=== PATIENT | female | born 1975 | race African-American/Black ===

== ENCOUNTER 2017-01-16 06:08 | Inpatient (IN) | payer OTHER ==
[~2017-01-16] VITALS: Ht 165.1 cm; Wt 92.7 kg
[2017-01-16] MEDS ORDERED: ONDANSETRON HCL 4MG/2ML VIAL IV STA (06:30)
[2017-01-16] MEDS ORDERED: MORPHINE SULFATE 4 MG/ML CPJ (NOT FOR IM USE) IV STA (06:30)
[2017-01-16] MEDS ORDERED: ASPIRIN 81MG TABLET PO ONE (06:30)
[2017-01-16] MEDS ORDERED: SODIUM CHLORIDE 0.9% 1,000 ML IV ONE (06:30)
[2017-01-16 06:56] LABS: BASOPHILS % 0.6 % (0.0-2.0); EOSINOPHILS % 1.1 % (0.0-5.0); HEMATOCRIT. 37.3 % (36.0-48.0); HEMOGLOBIN. 12.3 g/dL (12.0-16.0); MEAN CORPUSCULAR HEMOGLOBIN 28.9 pg (28.0-32.0); MEAN CORPUSCULAR HGB CONC 32.9 g/dL (31.0-37.0); MEAN CORPUSCULAR VOLUME 87.8 fL (81.0-99.0); MEAN PLATELET VOLUME 7.4 fl (7.4-10.4); MONOCYTES % 12.7 % (2.0-8.0); NEUTROPHILS % 53.6 % (40.0-76.0); PLATELET 222 x1000/uL (130-400); RED BLOOD CELL COUNT 4.25 mill/uL (4.2-5.4); WHITE BLOOD COUNT 3.1 x1000/uL (4.5-11.0)
[2017-01-16 07:05] LABS: D-DIMER < 0.19 mg/L FEU (<0.50); INR 1.1; PROTHROMBIN TIME 11.6 sec
[2017-01-16 07:07] LABS: ALANINE AMINOTRANSFERASE 28 IU/L (13-61); ALBUMIN 3.3 g/dL (3.4-5.0); ANION GAP 19; CALCIUM 8.4 mg/dL (8.5-10.1); CARBON DIOXIDE 20 mEq/L (21-32); CHLORIDE 107 mEq/L (98-107); INDEX HEMOLYSI 1 (1-3); INDEX ICTERIC 1 (1-4); INDEX LIPEMIC 1 (1-3); UREA NITROGEN BLOOD 12 mg/dL (7-21); eGFR > 60 mL/min (>60)
[2017-01-16 07:10] LABS: NT PRO B-TYPE NATRIURETIC PEP 21 pg/mL (5-125); TROPONIN I < 0.02 ng/mL (0.00-0.04)
[2017-01-16 08:01] LABS: *AMPHETAMINES SCREEN URINE NEGATIVE (NEGATIVE); *BARBITURATES SCREEN URINE NEGATIVE (NEGATIVE); *BENZODIAZEPINES SCREEN URINE NEGATIVE (NEGATIVE); *COCAINE SCREEN URINE NEGATIVE (NEGATIVE); CANNABINOID URINE SCREEN NEGATIVE (NEGATIVE); ECSTASY MDMA SCREEN URINE NEGATIVE (NEGATIVE); METHADONE URINE SCREEN NEGATIVE (NEGATIVE); OPIATES URINE SCREEN NEGATIVE (NEGATIVE); PHENCYCLIDINE URINE SCREEN NEGATIVE (NEGATIVE)
[2017-01-16 08:04] LABS: GLUCOSE URINE NEGATIVE (NEGATIVE); KETONES URINE NEGATIVE (NEGATIVE); LEUKOCYTE ESTERASE URINE TRACE (NEGATIVE); NITRITE URINE NEGATIVE (NEGATIVE); OCCULT BLOOD URINE NEGATIVE (NEGATIVE); PROTEIN URINE NEGATIVE (NEGATIVE); SPECIFIC GRAVITY URINE 1.016 (1.005-1.030); UROBILINOGEN URINE 0.2 E.U./dL (0.2-1.0)
[2017-01-16 08:07] LABS: CLARITY URINE HAZY (CLEAR); COLOR URINE YELLOW (YELLOW)
[2017-01-16 08:19] LABS: BACTERIA URINE 1+; FINE GRANULAR CASTS URINE 0-5 /lpf; MUCUS URINE TRACE /lpf (< = 2+); RBC URINE 0-2 /hpf (0-2); SQUAMOUS EPITHELIAL CELL URINE 2+ /lpf (RARE/1+)
[2017-01-16] MEDS ORDERED: ONDANSETRON HCL 4MG/2ML VIAL IV PRN (11:45)
[2017-01-16] MEDS ORDERED: DIPHENHYDRAMINE 50MG/ML VIAL IV PRN (11:45)
[2017-01-16] MEDS ORDERED: ACETAMINOPHEN 325MG TABLET PO PRN (11:45)
[2017-01-16] MEDS ORDERED: CLONIDINE 0.1MG TABLET PO PRN (11:45)
[2017-01-16] MEDS ORDERED: IPRATROPIUM/ALBUTEROL 0.5-3(2.5)MG/3ML NEB INH PRN (11:45)
[2017-01-16] MEDS ORDERED: SODIUM CHLORIDE 0.9% 10ML VIAL ONE (13:28)
[2017-01-16] MEDS ORDERED: IOHEXOL-350 100 ML BOTTLE ONE (13:28)
[2017-01-16 14:30] VITALS: BP 121/90
[2017-01-16] MEDS: HYDROCODONE/ACETAMINOPHEN 5/325MG TABLET PO PRN ×3 (14:56→23:45)
[2017-01-16] MEDS ORDERED: REGADENOSON 0.4 MG/5 ML IV ONE (15:30)
[2017-01-16] MEDS: AMLODIPINE 2.5MG TABLET PO SCH ×2 (15:30→20:04)
[2017-01-16 16:00] VITALS: BP 112/66
[2017-01-16 19:27] LABS: UCG SCREEN NEGATIVE
[2017-01-16 20:00] VITALS: BP 132/85
[2017-01-16] MEDS: PANTOPRAZOLE SODIUM 40 MG/VIAL IV SCH (21:46)
[2017-01-16 23:57] VITALS: BP 113/76
[2017-01-17 04:00] VITALS: BP 127/77
[2017-01-17 07:06] LABS: ALANINE AMINOTRANSFERASE 25 IU/L (13-61); ALBUMIN 3.2 g/dL (3.4-5.0); ANION GAP 12; CALCIUM 8.2 mg/dL (8.5-10.1); CARBON DIOXIDE 23 mEq/L (21-32); CHLORIDE 108 mEq/L (98-107); INDEX HEMOLYSI 1 (1-3); INDEX ICTERIC 1 (1-4); INDEX LIPEMIC 1 (1-3); LDL CHOLESTEROL 57 mg/dL (5-100); TRIGLYCERIDE 207 mg/dL (0-150); UREA NITROGEN BLOOD 9 mg/dL (7-21); eGFR > 60 mL/min (>60)
[2017-01-17 07:09] LABS: BASOPHILS % 0.4 % (0.0-2.0); EOSINOPHILS % 1.3 % (0.0-5.0); HEMATOCRIT. 36.7 % (36.0-48.0); LYMPHOCYTES % 30.6 % (20.0-50.0); MEAN CORPUSCULAR HEMOGLOBIN 29.2 pg (28.0-32.0); MEAN CORPUSCULAR HGB CONC 32.8 g/dL (31.0-37.0); MEAN CORPUSCULAR VOLUME 88.9 fL (81.0-99.0); MEAN PLATELET VOLUME 7.9 fl (7.4-10.4); MONOCYTES % 13.3 % (2.0-8.0); NEUTROPHILS % 54.4 % (40.0-76.0); PLATELET 196 x1000/uL (130-400); RED BLOOD CELL COUNT 4.13 mill/uL (4.2-5.4); RED CELL DISTRIBUTION WIDTH 14.3 % (11.6-14.6); WHITE BLOOD COUNT 3.2 x1000/uL (4.5-11.0)
[2017-01-17 07:11] LABS: HDL CHOLESTEROL 75 mg/dL (40-59)
[2017-01-17] MEDS ORDERED: REGADENOSON 0.4 MG/5 ML IV ONE (08:24)
[2017-01-17] MEDS: AMLODIPINE 2.5MG TABLET PO SCH (09:00)
[2017-01-17] MEDS: PANTOPRAZOLE SODIUM 40 MG/VIAL IV SCH (09:41)
[2017-01-17] MEDS: HYDROCODONE/ACETAMINOPHEN 5/325MG TABLET PO PRN (09:45)
[2017-01-17 13:20] VITALS: BP 145/75
== END 2017-01-17 15:28 | disposition home or self-care (01) | DRG 203 ==
LOC: ER 06:18 → 5WST 11:34
PROVIDERS: ADMIT Internal Medicine; ATTEND Internal Medicine
DX: R07.89 Other chest pain (principal); E46 Unspecified protein-calorie malnutrition; I10 Essential (primary) hypertension; E78.1 Pure hyperglyceridemia; E66.9 Obesity, unspecified; D72.819 Decreased white blood cell count, unspecified; N39.0 Urinary tract infection, site not specified; K21.9 Gastro-esophageal reflux disease without esophagitis; Z68.34 Body mass index [BMI] 34.0-34.9, adult
CPT/HCPCS: 36415; 71010; 71275; 78452; 80053; 80061; 80305; 81001; 81025; 83735; 83880; 84443; 84484; 85025; 85379; 85610; 85730; 87040; 87086; 93005; 93017; 93306; 96361; 96374; 96375; 99285; A4216; A9500; C9113; J2270; J2405; J2785; J7030; J7040; Q9967

== ENCOUNTER 2023-04-26 03:34 | Inpatient (IN) | payer OTHER ==
[~2023-04-26] VITALS: Ht 170.2 cm; Wt 96.2 kg
[2023-04-26 03:54] VITALS: O2SAT 97
[2023-04-26 04:34] LABS: BASOPHILS % 0.6 % (0.0-2.0); EOSINOPHILS % 3.2 % (0.0-5.0); HEMATOCRIT. 39.1 % (36.0-48.0); HEMOGLOBIN. 12.8 g/dL (12.0-16.0); LYMPHOCYTES % 18.5 % (20.0-50.0); MEAN CORPUSCULAR HGB CONC 32.8 g/dL (31.0-37.0); MEAN CORPUSCULAR VOLUME 91.4 fL (81.0-99.0); MEAN PLATELET VOLUME 7.5 fl (7.4-10.4); MONOCYTES % 13.6 % (2.0-8.0); NEUTROPHILS % 64.1 % (40.0-76.0); PLATELET 214 x1000/uL (130-400); RED BLOOD CELL COUNT 4.28 mill/uL (4.2-5.4); RED CELL DISTRIBUTION WIDTH 14.7 % (11.6-14.6); WHITE BLOOD COUNT 3.7 x1000/uL (4.5-11.0)
[2023-04-26 04:41] LABS: CHLORIDE 108 mEq/L (98-107); INDEX HEMOLYSI 1 (1-3); INDEX ICTERIC 1 (1-4); INDEX LIPEMIC 1 (1-3); SODIUM 138 mEq/L (136-145)
[2023-04-26 04:52] LABS: ALANINE AMINOTRANSFERASE 51 IU/L (13-61); ALBUMIN 3.8 g/dL (3.4-5.0); ASPARTATE AMINOTRANSFERASE 50 IU/L (15-37); BILIRUBIN TOTAL 0.4 mg/dL (0.1-1.0); CALCIUM 8.9 mg/dL (8.5-10.1); CARBON DIOXIDE 21 mEq/L (21-32); CREATININE 0.8 mg/dL (0.6-1.3); GLUCOSE 116 mg/dL (70-105); PROTEIN TOTAL 7.3 g/dL (6.0-8.3); TROPONIN I HIGH SENSITIVITY 5 ng/L (<54); UREA NITROGEN BLOOD 10 mg/dL (7-21)
[2023-04-26 05:45] LABS: CLARITY URINE CLEAR (CLEAR); COLOR URINE YELLOW (YELLOW); GLUCOSE URINE NEGATIVE (NEGATIVE); KETONES URINE NEGATIVE (NEGATIVE); LEUKOCYTE ESTERASE URINE NEGATIVE (NEGATIVE); NITRITE URINE NEGATIVE (NEGATIVE); OCCULT BLOOD URINE NEGATIVE (NEGATIVE); PH URINE 5.5 (4.5-8.0); PROTEIN URINE NEGATIVE (NEGATIVE); SPECIFIC GRAVITY URINE 1.008 (1.005-1.030); UROBILINOGEN URINE 0.2 E.U./dL (0.2-1.0)
[2023-04-26] MEDS ORDERED: MORPHINE SULFATE 2 MG/ML CPJ (NOT FOR IM USE) IV ONE (05:45)
[2023-04-26] MEDS ORDERED: ONDANSETRON HCL 4MG/2ML INJ IV ONE (05:45)
[2023-04-26] MEDS ORDERED: ASPIRIN 325MG EC TABLET PO ONE (05:45)
[2023-04-26] MEDS ORDERED: MORPHINE SULFATE 4 MG/ML CPJ (NOT FOR IM USE) IV ONE (12:30)
[2023-04-26 14:14] LABS: *AMPHETAMINES SCREEN URINE NEGATIVE (NEGATIVE); *BARBITURATES SCREEN URINE NEGATIVE (NEGATIVE); *BENZODIAZEPINES SCREEN URINE NEGATIVE (NEGATIVE); *COCAINE SCREEN URINE NEGATIVE (NEGATIVE); CANNABINOID URINE SCREEN NEGATIVE (NEGATIVE); ECSTASY MDMA SCREEN URINE NEGATIVE (NEGATIVE); METHADONE URINE SCREEN NEGATIVE (NEGATIVE); OPIATES URINE SCREEN NEGATIVE (NEGATIVE); PHENCYCLIDINE URINE SCREEN NEGATIVE (NEGATIVE)
[2023-04-26] MEDS ORDERED: IPRATROPIUM/ALBUTEROL 0.5-3(2.5)MG/3ML NEB HHN PRN (16:15)
[2023-04-26] MEDS ORDERED: CLONIDINE 0.1MG TABLET PO PRN (16:15)
[2023-04-26] MEDS ORDERED: ENOXAPARIN 40MG/0.4ML SYR SUBCUT SCH (16:15)
[2023-04-26] MEDS ORDERED: MAGNESIUM/ALUMINUM HYDROXIDE/SIMETHICONE 30ML UDC PO PRN (16:15)
[2023-04-26] MEDS ORDERED: DOCUSATE SODIUM 100MG CAPSULE PO PRN (16:15)
[2023-04-26] MEDS ORDERED: ACETAMINOPHEN 325MG TABLET PO PRN ×2 (16:15)
[2023-04-26] MEDS ORDERED: ONDANSETRON HCL 4MG/2ML INJ IV PRN (16:15)
[2023-04-26 17:45] VITALS: BP 111/60; PULSE 95; RESP 19; TEMP 96.4
[2023-04-26 18:00] VITALS: BP 111/60; PULSE 95; RESP 19; TEMP 96.4
[2023-04-26] MEDS: ENOXAPARIN 30MG/0.3ML SYR SUBCUT SCH (18:00)
[2023-04-26 20:00] VITALS: BP 135/63; PULSE 94; RESP 18; TEMP 98.8
[2023-04-26 21:42] LABS: CHLORIDE 108 mEq/L (98-107); INDEX HEMOLYSI 1 (1-3); INDEX ICTERIC 1 (1-4); INDEX LIPEMIC 1 (1-3); POTASSIUM 3.7 mEq/L (3.5-5.1); SODIUM 138 mEq/L (136-145)
[2023-04-26 21:47] LABS: CARBON DIOXIDE 21 mEq/L (21-32); GLUCOSE 109 mg/dL (70-105); UREA NITROGEN BLOOD 12 mg/dL (7-21)
[2023-04-27] VITALS: BP 134/69; PULSE 92; RESP 18; TEMP 98
[2023-04-27 04:00] VITALS: BP 132/65; PULSE 75; RESP 18; TEMP 98.2
[2023-04-27] MEDS: ENOXAPARIN 30MG/0.3ML SYR SUBCUT SCH ×2 (05:59→18:56)
[2023-04-27 07:19] LABS: HEMATOCRIT 37.6 % (36.0-48.0); HEMOGLOBIN 12.5 g/dL (12.0-16.0); MEAN CORPUSCULAR HEMOGLOBIN 30.3 pg (28.0-32.0); MEAN CORPUSCULAR HGB CONC 33.2 g/dL (31.0-37.0); MEAN CORPUSCULAR VOLUME 91.2 fL (81.0-99.0); PLATELET 194 x1000/uL (130-400); RED BLOOD CELL COUNT 4.12 mill/uL (4.2-5.4); RED CELL DISTRIBUTION WIDTH 15.2 % (11.6-14.6); WHITE BLOOD COUNT 3.4 x1000/uL (4.5-11.0)
[2023-04-27 08:00] VITALS: BP 119/71; PULSE 96; RESP 20; TEMP 98.2
[2023-04-27 08:00] LABS: INDEX HEMOLYSI 1 (1-3); INDEX ICTERIC 1 (1-4); INDEX LIPEMIC 1 (1-3)
[2023-04-27] MEDS: FAMOTIDINE 20MG/2ML VIAL IV SCH (08:18)
[2023-04-27 08:19] LABS: ALANINE AMINOTRANSFERASE 42 IU/L (13-61); ALBUMIN 3.3 g/dL (3.4-5.0); ASPARTATE AMINOTRANSFERASE 27 IU/L (15-37); BILIRUBIN TOTAL 0.6 mg/dL (0.1-1.0); CALCIUM 8.7 mg/dL (8.5-10.1); CARBON DIOXIDE 21 mEq/L (21-32); CHLORIDE 108 mEq/L (98-107); CREATININE 0.8 mg/dL (0.6-1.3); GLUCOSE 111 mg/dL (70-105); NT PRO B-TYPE NATRIURETIC PEP 17 pg/mL (5-125); POTASSIUM 3.6 mEq/L (3.5-5.1); PROTEIN TOTAL 6.5 g/dL (6.0-8.3); SODIUM 139 mEq/L (136-145); UREA NITROGEN BLOOD 14 mg/dL (7-21)
[2023-04-27 12:00] VITALS: BP 131/76; PULSE 94; RESP 20; TEMP 98.5
[2023-04-27 12:38] LABS: INDEX HEMOLYSI 1 (1-3)
[2023-04-27 12:46] LABS: CREATINE KINASE 79 IU/L (26-192); CREATINE KINASE MB FRACTION < 1.0 ng/mL (0.5-3.6)
[2023-04-27 16:00] VITALS: BP 127/75; PULSE 85; RESP 20; TEMP 98.3
[2023-04-27 20:00] VITALS: BP 132/84; PULSE 88; RESP 16; TEMP 96.9
[2023-04-28] VITALS: BP 125/58; PULSE 90; RESP 18; TEMP 97.1
[2023-04-28 04:00] VITALS: BP 110/62; PULSE 78; RESP 18; TEMP 97.1
[2023-04-28] MEDS: ENOXAPARIN 30MG/0.3ML SYR SUBCUT SCH ×2 (05:07→18:00)
[2023-04-28 06:40] LABS: HEMATOCRIT 38.3 % (36.0-48.0); HEMOGLOBIN 12.4 g/dL (12.0-16.0); MEAN CORPUSCULAR HEMOGLOBIN 29.9 pg (28.0-32.0); MEAN CORPUSCULAR HGB CONC 32.5 g/dL (31.0-37.0); PLATELET 207 x1000/uL (130-400); RED BLOOD CELL COUNT 4.17 mill/uL (4.2-5.4); RED CELL DISTRIBUTION WIDTH 15.4 % (11.6-14.6); WHITE BLOOD COUNT 3.2 x1000/uL (4.5-11.0)
[2023-04-28 07:14] LABS: CHLORIDE 107 mEq/L (98-107); INDEX HEMOLYSI 1 (1-3); INDEX ICTERIC 1 (1-4); INDEX LIPEMIC 1 (1-3); POTASSIUM 3.8 mEq/L (3.5-5.1); SODIUM 138 mEq/L (136-145)
[2023-04-28 07:25] LABS: ALANINE AMINOTRANSFERASE 36 IU/L (13-61); ALBUMIN 3.3 g/dL (3.4-5.0); ASPARTATE AMINOTRANSFERASE 24 IU/L (15-37); BILIRUBIN TOTAL 0.3 mg/dL (0.1-1.0); CALCIUM 8.9 mg/dL (8.5-10.1); CARBON DIOXIDE 20 mEq/L (21-32); CREATINE KINASE MB FRACTION < 1.0 ng/mL (0.5-3.6); CREATININE 0.9 mg/dL (0.6-1.3); GLUCOSE 98 mg/dL (70-105); PROTEIN TOTAL 6.6 g/dL (6.0-8.3); TROPONIN I HIGH SENSITIVITY 5 ng/L (<54); UREA NITROGEN BLOOD 12 mg/dL (7-21)
[2023-04-28 08:00] VITALS: BP 107/66; PULSE 82; RESP 20; TEMP 98.3
[2023-04-28] MEDS: FAMOTIDINE 20MG/2ML VIAL IV SCH (08:53)
[2023-04-28] MEDS ORDERED: IOHEXOL-350 100 ML BOTTLE ONE (10:35)
[2023-04-28 12:00] VITALS: BP 124/81; PULSE 87; RESP 20; TEMP 98.3
[2023-04-28 16:00] VITALS: BP 141/83; PULSE 88; RESP 20; TEMP 98.2
[2023-04-28 20:19] VITALS: BP 149/65; PULSE 78; RESP 20; TEMP 98.8
[2023-04-28 23:16] LABS: UCG QC LOT# 618504; UCG SCREEN NEGATIVE
[2023-04-29 04:00] VITALS: BP 123/62; PULSE 96; RESP 18; TEMP 97.6
[2023-04-29 05:42] LABS: HEMOGLOBIN 12.3 g/dL (12.0-16.0); MEAN CORPUSCULAR HEMOGLOBIN 29.7 pg (28.0-32.0); MEAN CORPUSCULAR HGB CONC 32.3 g/dL (31.0-37.0); MEAN CORPUSCULAR VOLUME 91.8 fL (81.0-99.0); PLATELET 217 x1000/uL (130-400); RED BLOOD CELL COUNT 4.14 mill/uL (4.2-5.4); RED CELL DISTRIBUTION WIDTH 15.1 % (11.6-14.6); WHITE BLOOD COUNT 3.9 x1000/uL (4.5-11.0)
[2023-04-29 06:00] LABS: CHLORIDE 108 mEq/L (98-107); INDEX HEMOLYSI 1 (1-3); INDEX ICTERIC 1 (1-4); INDEX LIPEMIC 1 (1-3); POTASSIUM 3.8 mEq/L (3.5-5.1); SODIUM 135 mEq/L (136-145)
[2023-04-29] MEDS: ENOXAPARIN 30MG/0.3ML SYR SUBCUT SCH (06:00)
[2023-04-29 06:07] LABS: ALANINE AMINOTRANSFERASE 41 IU/L (13-61); ALBUMIN 3.3 g/dL (3.4-5.0); ASPARTATE AMINOTRANSFERASE 26 IU/L (15-37); BILIRUBIN TOTAL 0.3 mg/dL (0.1-1.0); CALCIUM 8.6 mg/dL (8.5-10.1); CARBON DIOXIDE 23 mEq/L (21-32); CREATININE 0.8 mg/dL (0.6-1.3); GLUCOSE 102 mg/dL (70-105); PROTEIN TOTAL 6.6 g/dL (6.0-8.3); UREA NITROGEN BLOOD 10 mg/dL (7-21)
[2023-04-29 08:00] VITALS: BP 117/76; PULSE 87; RESP 20; TEMP 96.4
[2023-04-29] MEDS ORDERED: LABETALOL HCL 100MG TABLET PO NR (08:00)
[2023-04-29 08:15] VITALS: PULSE 87
[2023-04-29] MEDS: FAMOTIDINE 20MG/2ML VIAL IV SCH (08:15)
[2023-04-29] MEDS ORDERED: REGADENOSON 0.4 MG/5 ML IV ONE ×2 (10:15→13:32)
== END 2023-04-29 18:04 | disposition home or self-care (01) | DRG 313 ==
LOC: ER 03:34 → 8WST 12:25 → ER 17:27
PROVIDERS: ADMIT Internal Medicine; ATTEND Internal Medicine
DX: R07.89 Other chest pain (principal); I31.39 Other pericardial effusion (noninflammatory); E66.9 Obesity, unspecified; R73.03 Prediabetes; R00.0 Tachycardia, unspecified; M54.31 Sciatica, right side; N95.1 Menopausal and female climacteric states; Z82.49 Family history of ischemic heart disease and other diseases of the circulatory system; Z68.33 Body mass index [BMI] 33.0-33.9, adult; Z71.3 Dietary counseling and surveillance
CPT/HCPCS: 36415; 71045; 71275; 78452; 80048; 80053; 80305; 81003; 81025; 82550; 82553; 83036; 83880; 84484; 85025; 85027; 85379; 85651; 93005; 93017; 93306; 93970; 99285; A9500; J1650; J2270; J2405; J2785; J3490; Q9967